=== PATIENT | female | born 1980 | race Caucasian/White ===

== ENCOUNTER 2017-03-28 19:59 | Emergency (ER) | payer MEDICAID, OTHER ==
[2017-03-28] MEDS ORDERED: CLINDAMYCIN 150 MG CAP PO ONE (20:09)
--- NOTE | 2017-03-28 20:14 | Emergency Department Record ---
History of Present Illness - General Chief complaint: Dental Stated complaint: DENTAL PAIN Time Seen by Provider: 03/28/17 20:08 Source: Patient, Family Mode of Arrival: Ambulatory Limitations: No limitations - History of Present Illness Initial comments: 36 yo female presents with right lower dental pain with some mild swelling that started in the last 24 hours. She has chronic decay due to prior fractures. No fevers. No neck or throat pain. No fever. No difficulties with swallowing. No facial redness or asymmetry. MD complaint: Tooth pain -: Days(s) Location: Tooth # (29) Severity: Moderate Quality: Aching Consistency: Constant Improves with: None Worsens with: Eating Context-Epistaxis: History of similar Context- Dental: History of dental caries, Poor dental care Associated Symptoms: Gum swelling - Related Data Home Medications Medication Instructions Recorded Confirmed Last Taken Butalb/Acetaminophen/Caffeine 1 each PO Q4HR PRN 05/17/16 11/11/16 Unknown [Fioricet] Previous Rx's Medication Instructions Recorded Ibuprofen [Motrin] 800 mg PO Q6H PRN #30 tab 05/17/16 Clindamycin HCl [Cleocin HCl] 300 mg PO QID #40 capsule 11/16/16 Hydrocodone/Acetaminophen [[place] 1 tab PO Q8H PRN #12 tab 03/28/17 5mg/325mg] Penicillin V Potassium 500 mg PO Q6H #40 tab 03/28/17 Allergies Allergy/AdvReac Type Severity Reaction Status Date / Time No Known Drug Allergies Allergy Verified 05/17/16 20:59 Review of Systems Constitutional: Denies: Chills, Fever Eyes: Denies: Eye discharge ENT: Reports: Dental pain. Denies: Congestion, Ear pain, Epistaxis, Throat pain Respiratory: Denies: Cough Endocrine: Denies: Fatigue Gastrointestinal: Denies: Diarrhea, Nausea, Vomiting Genitourinary: Denies: Dysuria Musculoskeletal: Denies: Arthralgia, Back pain, Myalgia Skin: Denies: Bruising, Change in color, Rash Neurological: Denies: Headache Psychiatric: Denies: Anxiety Hematological/Lymphatic: Denies: Blood Clots, Easy bleeding, Easy bruising, Swollen glands Past Medical History - SOCIAL HISTORY Smoking Status: Former smoker - RESPIRATORY Hx Respiratory Disorders: No - CARDIOVASCULAR Hx Cardio Disorders: No - NEURO Hx Neuro Disorders: Yes Hx Headaches: Yes (migraines) - GI Hx GI Disorders: No - Hx Genitourinary Disorders: No - ENDOCRINE Hx Endocrine Disorders: No - MUSCULOSKELETAL Hx Musculoskeletal Disorders: Yes - PSYCH Hx Psych Problems: No - HEMATOLOGY/ONCOLOGY Hx Hematology/Oncology Disorders: No Family Medical History *Cancer Comment: grandmother's sibling Hx Diabetes: Mother Hx Heart Disease: Mother, Grandparents Hx HTN: Mother Hx Resp Disorders: Mother Physical Exam - General General Appearance: Alert, Oriented x3, Cooperative, No acute distress Limitations: No limitations - Head Head exam: Normal inspection - Eye Eye exam: Normal appearance, PERRL, EOMI. negative: Conjunctival injection, Periorbital swelling, Periorbital tenderness - ENT ENT exam: Mucous membranes moist, TM's normal bilaterally. negative: Normal orophraynx Ear exam: Normal external inspection. negative: External canal tenderness Nasal Exam: Normal inspection. negative: Discharge, Sinus tenderness Mouth exam: Normal external inspection, Tongue normal Teeth exam: Dental caries, Dental tenderness # (29), Fractured tooth # (multiple ), Gingival enlargement (very mild right lower gum) Throat exam: Normal inspection. negative: Tonsillar erythema, Tonsillar exudate Image of Mouth/Teeth: 1 - slight swelling, decay of 30,29,28,27 - Neck Neck exam: Normal inspection, Full ROM. negative: Lymphadenopathy, Meningismus , Tenderness - Respiratory Respiratory exam: Normal lung sounds bilaterally. negative: Respiratory distress - Cardiovascular Cardiovascular Exam: Regular rate, Normal rhythm, Normal heart sounds - Rectal Rectal exam: Deferred - exam: Deferred - Neurological Neurological exam: Alert, CN II-XII intact, Normal gait, Oriented X3 - Psychiatric Psychiatric exam: Normal affect, Normal mood - Skin Skin exam: Dry, Intact, Normal color, Warm. negative: Erythema Course - Reevaluation(s) Reevaluation #1: The patient has a small area that may represent a developing abscess I recommend I and D to assess for drainage 03/28/17 20:13 Reevaluation #2: Procedure: I and D Lidocaine 1% with Epi 1ml 11 blade 2mm incision very small amount of pus then blood and cleared tolerated well We discussed close dental follow up and reasons to return to the ED She has a dentist and dental insurance and will call tomorrow 03/28/17 20:16 Disposition Disposition: Discharge Clinical Impression: Dental abscess Disposition: Home, Self-Care Condition: (1) Good Instructions: Dental Abscess (ED) Additional Instructions: Return if worse, swelling, throat pain or any new concerns Call your dentist tomorrow morning for close follow up Prescriptions: Hydrocodone/Acetaminophen [[place] 5mg/325mg] 1 tab PO Q8H PRN #12 tab PRN Reason: Pain - General Penicillin V Potassium 500 mg PO Q6H #40 tab Forms: Patient Portal Access Time of Disposition: 20:23
[2017-03-28] MEDS: PENICILLIN V POTASSIUM 250 MG TAB PO ONE (20:16)
[2017-03-28] MEDS: HYDROCODONE/APAP 7.5/325MG TABLET PO ONE (20:16)
== END 2017-03-28 20:36 | disposition home or self-care (01) ==
LOC: ER 19:59
DX: K04.7 Periapical abscess without sinus (principal)
CPT/HCPCS: 41800; 99283

== ENCOUNTER 2017-11-19 00:01 | Emergency (ER) | payer OTHER ==
[2017-11-19] MEDS ORDERED: ACETAMINOPHEN 325 MG TAB PO ONE (00:07)
--- NOTE | 2017-11-19 00:11 | Emergency Department Record ---
History of Present Illness - General Chief Complaint: Ankle/Foot Injury Stated Complaint: FOOT INJURY Time Seen by Provider: 11/19/17 00:07 Source: Patient Mode of Arrival: Wheelchair Limitations: No limitations - History of Present Illness Initial Comments: The patient is here due to R foot pain. She was stepping down off a step and inverted her R foot. Now she is having significant pain to her R foot. She denies any other injury or trauma. Complaint: Foot injury Onset/Timin -: Minutes(s) - Related Data Previous Rx's Medication Instructions Recorded Hydrocodone/Acetaminophen [[place] 1 - 2 each PO QID #15 tablet 11/19/17 5-325 Tablet] Allergies Allergy/AdvReac Type Severity Reaction Status Date / Time No Known Drug Allergies Allergy Verified 05/17/16 20:59 Review of Systems Constitutional: Denies: Chills, Fever Eyes: Denies: Eye discharge ENT: Denies: Congestion Respiratory: Denies: Cough, Dyspnea Past Medical History - SOCIAL HISTORY Smoking Status: Former smoker - RESPIRATORY Hx Respiratory Disorders: No - CARDIOVASCULAR Hx Cardio Disorders: No - NEURO Hx Neuro Disorders: Yes Hx Headaches: Yes (migraines) - GI Hx GI Disorders: No - Hx Genitourinary Disorders: No - ENDOCRINE Hx Endocrine Disorders: No - MUSCULOSKELETAL Hx Musculoskeletal Disorders: Yes - PSYCH Hx Psych Problems: No - HEMATOLOGY/ONCOLOGY Hx Hematology/Oncology Disorders: No Family Medical History *Cancer Comment: grandmother's sibling Hx Diabetes: Mother Hx Heart Disease: Mother, Grandparents Hx HTN: Mother Hx Resp Disorders: Mother Physical Exam - General General Appearance: Alert, Oriented x3, Cooperative, No acute distress - Eye Eye exam: Normal appearance, PERRL - ENT ENT exam: Normal exam, Mucous membranes moist, Normal external ear exam, Normal orophraynx, TM's normal bilaterally Ear exam: Normal external inspection. negative: External canal tenderness Nasal Exam: Normal inspection. negative: Discharge, Sinus tenderness Mouth exam: Normal external inspection, Tongue normal Teeth exam: Normal inspection. negative: Dental caries Throat exam: Normal inspection. negative: Tonsillar erythema, Tonsillar exudate - Extremities Extremities exam: Normal capillary refill, Tenderness (There is tenderness over the 4th and 5th MT bones.). negative: Normal inspection (There is swelling to the dorsal lateral foot. ), Full ROM, Joint swelling Image of Feet: 1 - Area of pain and tenderness. Course Vital Signs 11/19/17 00:03 Temperature 98.6 F Pulse Rate [ 87 Pulse Ox Probe] Respiratory 20 Rate Blood Pressure 147/86 [Left Arm] Pulse Ox 99 - Reevaluation(s) Reevaluation #1: I did explain the fx of the 5th MT with the patient and the need for Ortho F/U. 11/19/17 00:31 Medical Decision Making - Data Complexity MDM Data: X-Ray Ordered and/or Reviewed - Radiology Data Radiology results: Report reviewed (R Foot: Nondisplaced proximal 5th MT fx.) Disposition Disposition: Discharge Clinical Impression: Foot fracture, right Qualifiers: Encounter type: initial encounter Fracture type: closed Qualified Code(s): S92.901A - Unspecified fracture of right foot, initial encounter for closed fracture Disposition: Home, Self-Care Condition: (2) Stable Instructions: Foot Fracture in Adults (ED) Additional Instructions: Please ice and elevate the R foot when possible. Do not walk on the R foot and use the crutches at all times. Please take Tylenol OR [place] for pain. Please see Dr. Brownlee in the [facility] next week or F/U with an Ortho doctor of your choice. Prescriptions: Hydrocodone/Acetaminophen [[place] 5-325 Tablet] 1 - 2 each PO QID #15 tablet Referrals: [facility] [Provider Group] Forms: Patient Portal Access Time of Disposition: 00:33 Quality - Quality Measures Quality Measures: N/A - Blood Pressure Screening View Details: Yes Does Patient Have Any of the Following: No Blood Pressure Classification: Pre-Hypertensive BP Reading Systolic Measurement: 147 Diastolic Measurement: 86 Screening for High Blood Pressure: < Pre-Hypertensive BP, F/U Documented > [ G8950] Pre-Hypertensive Follow-up Interventions: Referral to alternative/primary care provider.
[2017-11-19] MEDS ORDERED: HYDROCODONE/APAP 5/325MG TABLET PO ONE (00:29)
--- NOTE | 2017-11-19 09:18 | RADIOLOGY REPORT ---
EXAM: FOOT, RIGHT 3 VIEWS HISTORY: INJURY. TECHNIQUE: Three-view right foot. COMPARISON: None. ENCOUNTER: Initial. FINDINGS: Minimally displaced fracture of the fifth metatarsal. Associated soft tissue swelling. Small calcaneal spurs. No dislocation. IMPRESSION: MINIMALLY DISPLACED FIFTH METATARSAL FRACTURE. JOB NUMBER: [id number] MTDD
== END 2017-11-19 01:04 | disposition home or self-care (01) ==
LOC: ER 00:01
DX: S92.354A Nondisplaced fracture of fifth metatarsal bone, right foot, initial encounter for closed fracture (principal); X50.0XXA Overexertion from strenuous movement or load, initial encounter
CPT/HCPCS: 99283

== ENCOUNTER 2018-02-04 14:43 | Emergency (ER) | payer OTHER ==
[2018-02-04] MEDS ORDERED: ORPHENADRINE CITRATE 60MG/2ML VIAL IM ONE (17:29)
[2018-02-04] MEDS ORDERED: KETOROLAC 30 MG/ML VIAL IM ONE (17:29)
--- NOTE | 2018-02-04 17:44 | Emergency Department Record ---
History of Present Illness - General Chief Complaint: Back Pain/Injury Stated Complaint: LOWER BACK PAIN Time Seen by Provider: 02/04/18 17:24 Source: Patient Mode of Arrival: Ambulatory Limitations: No limitations - History of Present Illness Initial Comments: pt states she has back pain. she has a hx of this and has seen dr sneed and has had a rhizotomy a few years ago. she denies any new injury, it just started acting up. she has pain in the middle of her back that goes down both legs. she states this is the way it always is. she has no numbness and no problems with bowel or bladder MD Complaint: Back pain Onset/Timin -: Days(s) Similar Symptoms Previously: Yes Place: Home Improves With: None Worsens With: None Context: Unknown, Other Associated Symptoms: Difficulty walking, Other Treatments Prior to Arrival: Prescription analgesics Treatment Prior to Arrival Comment:: [place] 5 at noon [employer]. - Related Data Home Medications Medication Instructions Recorded Confirmed Last Taken Hydrocodone/Acetaminophen [[place] 1 tab PO Q6H PRN 02/04/18 02/04/18 02/04/18 5mg/325mg] Previous Rx's Medication Instructions Recorded Prednisone [Prednisone 20Mg] 20 mg PO BIDPC #8 tab 02/04/18 Allergies Allergy/AdvReac Type Severity Reaction Status Date / Time No Known Drug Allergies Allergy Verified 02/04/18 16:02 Travel Screening - Travel/Exposure Within Last 30 Days Have you traveled within the last 30 days?: No - Travel/Exposure Within Last Year Have you traveled outside the [place] in the last year?: No - Additonal Travel Details Have you been exposed to anyone with a communicable illness?: No - Travel Symptoms Symptom Screening: None Review of Systems Reviewed: No additional complaints except as noted below Constitutional: Reports: As per HPI. Denies: Chills, Fever, Malaise, Night sweats, Weakness, Weight change Eyes: Reports: As per HPI. Denies: Eye discharge, Eye pain, Photophobia, Vision change ENT: Reports: As per HPI. Denies: Congestion, Dental pain, Ear pain, Epistaxis , Hearing loss, Throat pain Respiratory: Reports: As per HPI. Denies: Cough, Dyspnea, Hemoptysis, Stridor, Wheezes Cardiovascular: Reports: As per HPI. Denies: Arrhythmia, Chest pain, Dyspnea on exertion, Edema, Murmurs, Orthopnea, Palpitations, Paroxysmal nocturnal dyspnea, Rheumatic Fever, Syncope Endocrine: Reports: As per HPI. Denies: Fatigue, Heat or cold intolerance, Polydipsia, Polyuria Gastrointestinal: Reports: As per HPI. Denies: Abdominal pain, Constipation, Diarrhea, Hematemesis, Hematochezia, Melena, Nausea, Vomiting Genitourinary: Reports: As per HPI. Denies: Abnormal menses, Discharge, Dyspareunia, Dysuria, Frequency, Hematuria, Incontinence, Retention, Urgency Musculoskeletal: Reports: As per HPI, Back pain. Denies: Arthralgia, Gout, Joint swelling, Myalgia, Neck pain Skin: Reports: As per HPI. Denies: Bruising, Change in color, Change in hair/ nails, Lesions, Pruritus, Rash Neurological: Reports: As per HPI. Denies: Abnormal gait, Confusion, Headache, Numbness, Paresthesias, Seizure, Tingling, Tremors, Vertigo, Weakness Psychiatric: Reports: As per HPI. Denies: Anxiety, Auditory hallucinations, Depression, Homicidal thoughts, Suicidal thoughts, Visual hallucinations Hematological/Lymphatic: Reports: As per HPI. Denies: Anemia, Blood Clots, Easy bleeding, Easy bruising, Swollen glands Past Medical History - SOCIAL HISTORY Smoking Status: Former smoker Alcohol Use: Rare Drug Use: None - RESPIRATORY Hx Respiratory Disorders: No - CARDIOVASCULAR Hx Cardio Disorders: No - NEURO Hx Neuro Disorders: Yes Hx Headaches: Yes (migraines) - GI Hx GI Disorders: No - Hx Genitourinary Disorders: No - ENDOCRINE Hx Endocrine Disorders: No - MUSCULOSKELETAL Hx Musculoskeletal Disorders: Yes - PSYCH Hx Psych Problems: No - HEMATOLOGY/ONCOLOGY Hx Hematology/Oncology Disorders: No Family Medical History Any Significant Family History?: No *Cancer Comment: grandmother's sibling Hx Diabetes: Mother Hx Heart Disease: Mother, Grandparents Hx HTN: Mother Hx Resp Disorders: Mother Physical Exam - General General Appearance: Alert, Oriented x3, Cooperative, Mild distress - Head Head exam: Normal inspection - Eye Eye exam: Normal appearance, PERRL, EOMI Pupils: Normal accommodation - ENT ENT exam: Normal exam, Mucous membranes moist, Normal external ear exam, Normal orophraynx Ear exam: Normal external inspection. negative: External canal tenderness Nasal Exam: Normal inspection. negative: Discharge, Sinus tenderness Mouth exam: Normal external inspection, Tongue normal Teeth exam: Normal inspection. negative: Dental caries Throat exam: Normal inspection. negative: Tonsillar erythema, Tonsillar exudate - Neck Neck exam: Normal inspection, Full ROM. negative: Tenderness - Respiratory Respiratory exam: Normal lung sounds bilaterally. negative: Respiratory distress - Cardiovascular Cardiovascular Exam: Regular rate, Normal rhythm, Normal heart sounds - GI/Abdominal GI/Abdominal exam: Soft, Normal bowel sounds. negative: Tenderness - Rectal Rectal exam: Deferred - exam: Deferred - Extremities Extremities exam: Normal inspection, Full ROM, Normal capillary refill. negative: Tenderness - Back Back exam: Reports: Muscle spasm, Paraspinal tenderness, Tenderness. Denies: Full ROM, Rash noted - Neurological Neurological exam: Alert, CN II-XII intact, Normal gait, Oriented X3 - Psychiatric Psychiatric exam: Normal affect, Normal mood - Skin Skin exam: Dry, Intact, Normal color, Warm Course Vital Signs 02/04/18 15:55 Temperature 97.7 F Pulse Rate 79 Respiratory 18 Rate Blood Pressure 142/83 Pulse Ox 99 - Reevaluation(s) Reevaluation #1: 02/04/18 18:30 pt feeling better, requesting a steroid burst as that always helps her flare ups Disposition Disposition: Discharge Clinical Impression: Sciatica Qualifiers: Laterality: bilateral Qualified Code(s): M54.31 - Sciatica, right side; M54.32 - Sciatica, left side; M54.32 - Sciatica, left side Disposition: Home, Self-Care Condition: (1) Good Instructions: Low Back Strain (ED), Sciatica (ED), Lower Back Exercises (ED) Additional Instructions: follow up with family doctor. return sooner if worse. no lifting more then 5 lbs for 5 days. ice and moist heat to area. Prescriptions: Prednisone [Prednisone 20Mg] 20 mg PO BIDPC #8 tab Forms: Patient Portal Access Quality - Quality Measures Quality Measures: N/A - Blood Pressure Screening Does Patient Have Any of the Following: No Blood Pressure Classification: Pre-Hypertensive BP Reading Systolic Measurement: 142 Diastolic Measurement: 83 Screening for High Blood Pressure: < Pre-Hypertensive BP, F/U Documented > [ G8950] Pre-Hypertensive Follow-up Interventions: Follow-up with rescreen every year.
== END 2018-02-04 18:49 | disposition home or self-care (01) ==
LOC: ER 14:43
DX: M54.31 Sciatica, right side (principal); M54.32 Sciatica, left side
CPT/HCPCS: 99283 ×2; 96372; J1885; J2360